=== PATIENT | female | born 1970 | race Two or more races ===

== ENCOUNTER 2017-01-21 08:19 | Emergency (ER) | payer SELFPAY ==
[2017-01-21 08:28] VITALS: BP 119/94; PULSE 68; TEMP 98.2; BMI 33.3
--- NOTE | 2017-01-21 09:16 | PDOC ---
History of Present Illness - General Chief Complaint: Headache Stated Complaint: HEADACHES/WEAKNESS Time Seen by Provider: 01/21/17 08:47 History Source: Patient Exam Limitations: No Limitations - History of Present Illness Initial Comments: 01/21/17 09:16 Patient came to emergency department with complaints of facial pain, congestion , generalized weakness. Denies fever, denies purulent drainage from nose, denies cough. States children were ill with some viral illness last week but have resolved. Timing/Duration: reports: 24 hours Severity: Yes: mild, moderate Associated Symptoms: reports: fatigue, weakness (generalized). denies: fever/ chills Past History - Travel Traveled outside of the country in the last 30 days: Yes Close contact w/someone who was outside of country & ill: No - Past Medical History Allergies/Adverse Reactions: Allergies Allergy/AdvReac Type Severity Reaction Status Date / Time No Known Allergies Allergy Verified 01/21/17 08:28 Home Medications: Ambulatory Orders NK [No Known Home Medication] 01/21/17 Other medical history: BELLS PALSY - Surgical History Cholecystectomy: Yes - Suicide/Smoking/Psychosocial Hx Smoking Status: No Smoking History: Never smoked Number of Cigarettes Smoked Daily: 0 Hx Alcohol Use: No Drug/Substance Use Hx: No Substance Use Type: None Review of Systems - Review of Systems Able to Perform ROS?: Yes Is the patient limited [place] proficient: Yes Constitutional: Yes: Symptoms Reported, See HPI, Malaise. No: Fever HEENTM: Yes: Symptoms Reported, See HPI Respiratory: Yes: See HPI. No: Symptoms reported, Cough, Shortness of Breath, Wheezing ABD/GI: Yes: See HPI. No: Symptoms Reported Neurological: Yes: Symptoms reported, See HPI, Headache (facial, primarily frontal ethmoid and maxillary sinus pain) All Other Systems: Reviewed and Negative *Physical Exam - Vital Signs Last Vital Signs Temp Pulse Resp BP Pulse Ox 98.2 F 68 18 119/94 99 01/21/17 08:26 01/21/17 08:26 01/21/17 08:26 01/21/17 08:26 01/21/17 08:26 - Physical Exam General Appearance: Yes: Nourished, Appropriately Dressed, Apparent Distress, Mild Distress HEENT: positive: EOMI, JAMMIE, Normal ENT Inspection, Normal Voice, TMs Normal ( congested but landmarks easily visualized), Pharynx Normal (with some whitish posterior sinus drainage noted), Nasal Congestion, Sinus Tenderness (with mild photophobia, fullness and bogginess to maxillary ethmoid and frontal sinus areas.), Other (patient with residual ptosis and facial droop to the right side consistent with history of non-resolved Dahl's palsy). negative: Rhinorrhea Neck: positive: Supple. 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 No evidence of bacterial infection therefore will hold antibiotics and treat conservatively with antihistamines and decongestants *DC/Admit/Observation/Transfer Diagnosis at time of Disposition: Viral upper respiratory illness - Discharge Dispostion Disposition: HOME Condition at time of disposition: Stable Admit: No - Patient Instructions Printed Discharge Instructions: Sinusitis (Alternative Therapy) Additional Instructions: Rest, drink lots of fluids: Teas, water, soups, Pedialyte Saltwater gargles Steamy showers/seem to face break up mucus Avoid contact with others until fevers and cough resolved Lots of handwashing and good hygiene Continue [id number] medications for symptomatic relief Tylenol or Motrin for fever and pain Use antihistamine with decongestant to help sinus drainage Followup with private physician in one to 2 days as needed Return to emergency department for worsened symptoms, fevers, dehydration - Post Discharge Activity Forms/Work/School Notes: Back to Work
[2017-01-21] MEDS ORDERED: IBUPROFEN 600 MG TABLET (FP) PO ONE ×2 (09:17→09:28)
== END 2017-01-21 10:14 | disposition home or self-care (01) ==
LOC: JERFT 08:19
DX: J06.9 Acute upper respiratory infection, unspecified (principal); B97.89 Other viral agents as the cause of diseases classified elsewhere
CPT/HCPCS: 84703; 99281-25

== ENCOUNTER 2019-06-03 16:42 | Emergency (ER) | payer SELFPAY ==
[2019-06-03 16:51] VITALS: BMI 31.8
--- NOTE | 2019-06-03 17:25 | PDOC ---
History of Present Illness - General History Source: Patient Exam Limitations: No Limitations <Mario Schofield - Last Filed: 06/03/19 20:42> <Shannon Esquivel - Last Filed: 06/03/19 20:53> - General Chief Complaint: Chest Pain Stated Complaint: FATIGUE/CHEST PAIN Time Seen by Provider: 06/03/19 17:24 - History of Present Illness Initial Comments: 06/03/19 18:17 49yF w PMHx HLD, obesity, [place] palsy (R facial droop, 2007) presenting with sudden onset midsternal and L chest pressure and SOB while laying awake in bed at 6a today. Chest pain worse with walking and sitting up, not associated w meals. Subsequent L facial numbness at work at 9am. Never had these symptoms before, no recent travel or illness. No known family cardiac hx or smoking. Denies fever, nausea/vomiting, headache, ABD pain, depression, anxiety. (Chandu Mario) Past History - Past Medical History COPD: No Other medical history: DENIES - Surgical History Cholecystectomy: Yes - Immunization History Immunization Up to Date: Yes - Psycho Social/Smoking Cessation Hx Smoking Status: No Smoking History: Never smoked Have you smoked in the past 12 months: No Number of Cigarettes Smoked Daily: 0 Information on smoking cessation initiated: No Hx Alcohol Use: No (SOCIAL) Drug/Substance Use Hx: No Substance Use Type: None <Mario Schofield - Last Filed: 06/03/19 20:42> <Shannon Esquivel - Last Filed: 06/03/19 20:53> - Past Medical History Allergies/Adverse Reactions: Allergies Allergy/AdvReac Type Severity Reaction Status Date / Time No Known Allergies Allergy Verified 06/03/19 16:50 Home Medications: Ambulatory Orders Cetirizine HCl/Pseudoephedrine [Allergy+Congestion Relf-D Tab] 1 each PO DAILY # 30 tab 01/21/17 Review of Systems - Review of Systems Constitutional: No: Chills, Fever HEENTM: No: Eye Pain, Nose Pain, Nose Congestion, Throat Pain Respiratory: Yes: Shortness of Breath. No: Cough Cardiac (ROS): Yes: Chest Pain. No: Palpitations, Syncope ABD/GI: No: Abdominal Distended, Constipated, Diarrhea, Nausea, Vomiting : No: Burning, Dysuria Musculoskeletal: No: Back Pain, Joint Pain Integumentary: No: Bruising, Flushing Neurological: No: Headache, Seizure, Tingling Psychiatric: No: Anxiety, Depression Endocrine: No: Intolerance to Cold, Intolerance to Heat Hematologic/Lymphatic: No: Anemia, Blood Clots <Chandu,Mario - Last Filed: 06/03/19 20:42> *Physical Exam - Physical Exam General Appearance: Yes: Nourished, Appropriately Dressed, Mild Distress, Obese HEENT: positive: EOMI, JAMMIE, Normal Voice, Hearing Grossly Normal, Other (R facial droop). negative: Scleral Icterus (R), Scleral Icterus (L) Respiratory/Chest: positive: Lungs Clear, Normal Breath Sounds. negative: Chest Tender, Respiratory Distress, Crackles, Rales, Rhonchi, Stridor, Wheezing Cardiovascular: positive: Regular Rhythm, Regular Rate, S1, S2. negative: Edema , Murmur Extremity: positive: Normal Capillary Refill Integumentary: positive: Normal Color Neurologic: positive: Fully Oriented, Alert, Normal Mood/Affect, Normal Response , Motor Strength 5/5, Respond to painful stimul, Responsive, Facial Droop (Right ), Numbness (L face). 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 NML intact (R mouth droop, L facial numbness including forehead), Confused, Disoriented <Mario Schofield - Last Filed: 06/03/19 20:42> - Vital Signs Last Vital Signs Temp Pulse Resp BP Pulse Ox 98.7 F 69 18 138/69 99 06/03/19 16:47 06/03/19 16:47 06/03/19 16:47 06/03/19 16:47 06/03/19 16:47 Heart Score/ECG Review - History History: Moderately suspicious - Electrocardiogram EKG: Normal - Age Age: 45-65 - Risk Factors Risk Factors Heart Score: Yes Hx Hypercholesterolemia, No Hx Hypertension, No Hx Diabetes, No Smoking History, No Positive family hx of cardiac disease, Yes Hx Obesity Based on the list above the patient has:: 1-2 risk factors - Troponin Troponin: </= normal limit - Score Heart Score - Total: 3 <Mario Schofield - Last Filed: 06/03/19 20:42> ED Treatment Course - LABORATORY CBC & Chemistry Diagram: 06/03/19 18:00 06/03/19 18:00 <Mario Schofield - Last Filed: 06/03/19 20:42> - LABORATORY CBC & Chemistry Diagram: 06/03/19 18:00 06/03/19 18:00 <Shannon Esquivel - Last Filed: 06/03/19 20:53> - ADDITIONAL ORDERS Additional order review: Laboratory Results 06/03/19 06/03/19 18:00 18:00 PT with INR 11.50 INR 0.97 Sodium 141 Potassium 3.7 Chloride 110 H Carbon Dioxide 24 Anion Gap 7 L BUN 13.3 Creatinine 0.6 Est GFR (CKD-EPI)AfAm 125.80 Est GFR (CKD-EPI)NonAf 108.54 Random Glucose 99 Calcium 8.7 Total Bilirubin 0.4 AST 27 ALT 35 Alkaline Phosphatase 95 Creatine Kinase 123 Troponin I < 0.02 Total Protein 6.8 Albumin 3.4 06/03/19 18:00 RBC 4.53 MCV 92.0 MCHC 34.2 RDW 15.3 D MPV 7.6 Neutrophils % 40.2 L D Lymphocytes % 48.8 H D Monocytes % 8.5 Eosinophils % 2.2 Basophils % 0.3 Medical Decision Making <Mario Schofield - Last Filed: 06/03/19 20:42> <Shannon Esquivel - Last Filed: 06/03/19 20:53> - Medical Decision Making 06/03/19 17:52 EKG NSR, HR 61, QTc 410, no ST changes CXR Head CT - no acute bleed/infarct/mass --- 49yF w PMHx HLD, obesity, [place] palsy (R facial droop, 2006) presenting with midsternal and L chest pressure, SOB at 6am and L facial numbness at 9am today d /t anxiety Low concern for ACS (neg tropx2, NSR EKG) vs CVA (NIHSS score 2, chronic R mouth droop, new L facial numbness, negative head CT). tPA not given because mild symptoms, symptoms >4.5hrs. Given tylenol, reglan, 1L NS for new onset headache in ED Consulted neuro Dr Carmona - advised symptoms attributed to anxiety not stroke, does not need admission, will follow up outpatient DC home w neuro f/u (Mario Schofield) Discharge - Discharge Information Problems reviewed: Yes - Admission No <Mario Schofield - Last Filed: 06/03/19 20:42> <Shannon Esquivel - Last Filed: 06/03/19 20:53> - Discharge Information Clinical Impression/Diagnosis: Anxiety Condition: Good Disposition: HOME - Follow up/Referral Referrals: Maria D Gomez MD [Primary Care Provider] - Yinka Carmona MD [Staff Physician] - - Patient Discharge Instructions Patient Printed Discharge Instructions: DI for Chest Pain, Eating a Diet Rich in Fruits and Vegetables Additional Instructions: Follow up with your primary care doctor and Dr Carmona neurology about your face numbness Take aspirin or tylenol if you have pain Come back to the ED if you have weakness, worsening pain, trouble breathing, or lose consciousness NIH Stroke Scale - Last Known Well Date/Time & Onset Date Last Known Well: 06/03/19 - Initial Evaluation Level of consciousness: Alert Ask patient the month and their age: Answers both correctly Ask patient to open & close eyes; make fist and let go: Obeys both correctly Best gaze (horizontal eye movement): Normal Visual field testing: No visual field loss Facial paresis (Show teeth/raise eyebrows/close eyes tight): Partial paralysis ( total or near paralysis of lower face) Motor Function: Left Arm: Normal Motor Function: Right Arm: Normal (extends arm 90 (or 45) degrees for 10 seconds without drift Motor Function: Left Leg: Normal (extends leg 30 degrees for 5 seconds without drift) Motor Function: Right Leg: Normal (extends leg 30 degrees for 5 seconds without drift) Limb Ataxia: No ataxia Sensory(Use pinprick test arms,legs,trunk,face/side to side): Normal Best language (Describe picture, name items, read sentences): No Aphasia Dysarthria (read several words): Normal articulation Extinction and Inattention: No abnormality - Total Score NIH Stroke Scale Score: 2 <Mario Schofield - Last Filed: 06/03/19 20:42> tPA Exclusion Checklist 0-3hr - Time Elapsed Date last known well: 06/03/19 Time last known well: 09:00 Elaspsed time: Day(s) and 11 Hour(s) and 42 Minutes - Thrombolytic Therapy Candidate Is the patient eligible for Thrombolytic Therapy?: No - Relative Exclusion Criteria 0-3h Stroke severity too mild: Yes - Ineligibility reason(s) Reasons No tPA given: Outside of window - delayed arrival, See reason(s) noted above <Mario Schofield - Last Filed: 06/03/19 20:42>
[2019-06-03 18:23] LABS: BASO % 0.3 % (0-2.0); EOS % 2.2 % (0-4.5); HEMATOCRIT 41.7 % (32.4-45.2); HEMOGLOBIN 14.2 GM/dL (10.7-15.3); LYMPH % 48.8 % (8-40); MCH 31.4 pg (25.7-33.7); MCHC 34.2 g/dl (32.0-36.0); MEAN PLT VOLUME 7.6 fl (7.5-11.1); MONO % 8.5 % (3.8-10.2); NEUT % 40.2 % (42.8-82.8); PLATELET COUNT 234 K/MM3 (134-434); RBC 4.53 M/mm3 (3.60-5.2); RDW 15.3 % (11.6-15.6); WHITE BLOOD COUNT 5.1 K/mm3 (4.0-10.0)
[2019-06-03 18:44] LABS: INR 0.97 (0.83-1.09); PROTHROMBIN TIME (PATIENT) 11.5 SEC (9.7-13.0)
[2019-06-03 19:12] LABS: ALBUMIN 3.4 g/dl (3.4-5.0); ALK PHOS 95 U/L (45-117); BILIRUBIN,TOTAL 0.4 mg/dL (0.2-1); BLOOD UREA NITROGEN 13.3 mg/dL (7-18); CALCIUM 8.7 mg/dL (8.5-10.1); CHLORIDE 110 mmol/L (98-107); CO2 24 mmol/L (21-32); CREATININE 0.6 mg/dL (0.55-1.3); GLUCOSE,RANDOM 99 mg/dL (74-106); POTASSIUM 3.7 mmol/L (3.5-5.1); SGOT/AST 27 U/L (15-37); SGPT/ALT 35 U/L (13-61); TOT PROT 6.8 g/dl (6.4-8.2)
[2019-06-03 19:13] LABS: ANION GAP 7 MMOL/L (8-16); SODIUM 141 mmol/L (136-145)
--- NOTE | 2019-06-03 19:45 | PDOC ---
Attending Attestation - Resident Resident Name: Mario Schofield - ED Attending Attestation I have performed the following: I have examined & evaluated the patient, The case was reviewed & discussed with the resident, I agree w/resident's findings & plan - HPI HPI: 06/03/19 19:47 Pt comes with CP that began at 6am today [facility] radiates to: Pt has had a hx of headaches; she has no other complaints. - Physicial Exam PE: 06/03/19 19:47 Agree with resident exam 06/03/19 20:12 Pt has numbness in the CN V2 distribution on the left side of her face. 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 Heart and lungs normal Abd soft NT ND Pt is overweight. 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 - Medical Decision Making 06/03/19 19:47 Pt has CP; normal labs at this time. CT scan ordered Her vitals are stable. 06/03/19 20:13 Pt tells me she has no PMD, as Fr. Gomez moved. She has high cholesterol and never changed her diet, despite doctors orders years ago to change diet. Pt will be admitted to the hospitalists. 06/03/19 20:16 Patient Name: MARITZA THOMPSON THIS IS A PRELIMINARY REPORT FROM IMAGING ADMISSIONS MANAGER DATE OF SERVICE: 2019-06-03 18:33:10 IMAGES: 234 EXAM: HEAD CT WITHOUT CONTRAST HISTORY: Left facial numbness COMPARISON: None. FINDINGS: There is no intra or extra-axial hemorrhage. No evidence of acute infarct in a major vascular territory within the limitations of CT No mass lesion or midline shift. Normal hirsch white matter differentiation. The ventricles are not enlarged and are symmetric and midline in position. The calvarium is intact The visualized paranasal sinuses and mastoid air cells are clear. 06/03/19 20:52 Dr. Carmona feels that this is likely all anxiety. She has been asked to follow with neuro and with medicine clinic. She has been asked to eat a healthier diet rich in veggies and fruits.
[2019-06-03] MEDS ORDERED: ACETAMINOPHEN 1000 MG/100 ML VIAL (NON FORMULARY) IVPB ONE (19:59)
[2019-06-03] MEDS ORDERED: METOCLOPRAMIDE HCL INJECTION 10 MG/2 ML VIAL IVPB ONE (20:27)
[2019-06-03] MEDS ORDERED: SODIUM CHLORIDE 0.9% 500 ML INFUS.BAG IV ONE (20:27)
[2019-06-03] MEDS ORDERED: ACETAMINOPHEN INJECTION 100 ML IVPB ONE (20:37)
[2019-06-03] MEDS ORDERED: METOCLOPRAMIDE HCL INJECTION 10 MG/2 ML VIAL ONE (20:37)
[2019-06-03 21:54] VITALS: BP 127/74; PULSE 72; TEMP 98.2
--- NOTE | 2019-06-04 14:30 | EKG ---
Test Reason : Blood Pressure : / mmHG Vent. Rate : 061 BPM Atrial Rate : 061 BPM P-R Int : 134 ms QRS Dur : 086 ms QT Int : 408 ms P-R-T Axes : 051 011 029 degrees QTc Int : 410 ms NORMAL SINUS RHYTHM NORMAL ECG WHEN COMPARED WITH ECG OF 30-MAR-2012 13:43, NO SIGNIFICANT CHANGE WAS FOUND Confirmed by MD PATTERSON MOYSES ([id number]) on 06/04/2019 2:30:23 PM Referred By: Confirmed By:FELICITY PATTERSON MD
== END 2019-06-03 21:54 | disposition home or self-care (01) ==
LOC: JER 16:42
PROC: 3E033GC Introduction of Other Therapeutic Substance into Peripheral Vein, Percutaneous Approach (ICD-10-PCS; principal; 2019-06-03)
PROC: 3E033NZ Introduction of Analgesics, Hypnotics, Sedatives into Peripheral Vein, Percutaneous Approach (ICD-10-PCS; 2019-06-03)
DX: F41.9 Anxiety disorder, unspecified (principal); Z86.69 Personal history of other diseases of the nervous system and sense organs; E66.9 Obesity, unspecified; Z68.31 Body mass index [BMI] 31.0-31.9, adult
CPT/HCPCS: 36415; 70450-TC; 71045-TC-FY; 80053; 82550; 84484; 85025; 85610; 93005; 93010; 99284-25; J0131

== ENCOUNTER 2021-01-21 10:08 | Emergency (ER) | payer SELFPAY ==
[2021-01-21 10:29] VITALS: BP 123/69; PULSE 70; TEMP 97.5; BMI 27.9
[2021-01-21] MEDS ORDERED: METOCLOPRAMIDE HCL INJECTION 10 MG/2 ML VIAL IVPB ONE (11:32)
[2021-01-21] MEDS ORDERED: ACETAMINOPHEN 1000 MG/100 ML VIAL (NON FORMULARY) IVPB ONE (11:32)
[2021-01-21] MEDS ORDERED: LIDOCAINE 5% TOPICAL PATCH TP ONE (11:32)
[2021-01-21] MEDS ORDERED: SODIUM CHLORIDE 1,000 ML IV STA (11:32)
[2021-01-21] MEDS ORDERED: ACETAMINOPHEN INJECTION 100 ML IVPB ONE (11:55)
[2021-01-21] MEDS ORDERED: METOCLOPRAMIDE HCL INJECTION 10 MG/2 ML VIAL ONE (11:55)
[2021-01-21] MEDS ORDERED: LIDOCAINE 5% TOPICAL PATCH ONE (12:04)
[2021-01-21] MEDS ORDERED: KETOROLAC TROMETHAMINE 60 MG/2 ML VIAL IVPUSH ONE (13:59)
[2021-01-21] MEDS ORDERED: KETOROLAC TROMETHAMINE 15 MG/ML VIAL ONE (14:02)
[2021-01-21] MEDS ORDERED: LIDOCAINE PATCH REMOVAL MC ONE (22:00)
== END 2021-01-21 17:07 | disposition home or self-care (01) ==
LOC: JERFT 10:08 → JER 10:08 → JERFT 17:07
PROC: 3E033NZ Introduction of Analgesics, Hypnotics, Sedatives into Peripheral Vein, Percutaneous Approach (ICD-10-PCS; principal; 2021-01-21)
PROC: 3E033GC Introduction of Other Therapeutic Substance into Peripheral Vein, Percutaneous Approach (ICD-10-PCS; 2021-01-21)
PROC: 3E033GC Introduction of Other Therapeutic Substance into Peripheral Vein, Percutaneous Approach (ICD-10-PCS; 2021-01-21)
PROC: 3E033GC Introduction of Other Therapeutic Substance into Peripheral Vein, Percutaneous Approach (ICD-10-PCS; 2021-01-21)
PROC: 3E0337Z Introduction of Electrolytic and Water Balance Substance into Peripheral Vein, Percutaneous Approach (ICD-10-PCS; 2021-01-21)
DX: R51.9 Headache, unspecified (principal); H11.32 Conjunctival hemorrhage, left eye
CPT/HCPCS: 70450-TC; 99285-25; J0131